=== PATIENT | male | born 1990 | race American Indian/Alaskan Native ===

== ENCOUNTER 2022-05-21 15:20 | Emergency (ER) | payer SELFPAY ==
--- NOTE | 2022-05-21 19:08 | XRay Report ---
CHEST 1 VIEW 05/21/2022 5:49 PM INDICATION / CLINICAL INFORMATION: cough. COMPARISON: None available. FINDINGS: SUPPORT DEVICES: None. HEART / MEDIASTINUM: No significant abnormality. LUNGS / PLEURA: No significant pulmonary or pleural abnormality. No pneumothorax. ADDITIONAL FINDINGS: No significant additional findings. IMPRESSION: 1. No acute findings. Signer Name: Guille Pham MD Signed: 05/21/2022 7:04 PM Workstation Name: [id number]
--- NOTE | 2022-05-21 20:50 | Emergency Department Report ---
ED General Adult HPI - General Chief complaint: Medical Clearance Stated complaint: AGITATION/NON VERBLE Time Seen by Provider: 05/21/22 17:05 Source: EMS Mode of arrival: Stretcher Limitations: Other - History of Present Illness Initial comments: The patient presents to the emergency department via EMS from what we believed to be a care home for agitation. Patient reportedly has autism and per the care home the patient becomes more agitated when he is ill. Patient is no acute distress upon initial evaluation. Due to his autism he does not part icipate in attainment of history. -: unknown Severity scale (0 -10): 0 Improves with: none Worsens with: none Treatments Prior to Arrival: none - Related Data Allergies Allergy/AdvReac Type Severity Reaction Status Date / Time No Known Allergies Allergy Verified 05/21/22 15:35 ED Review of Systems ROS: Stated complaint: AGITATION/NON VERBLE Other details as noted in HPI Comment: Unobtainable due to pts medical conditions (Not able to obtain due to the patient's autism) ED Past Medical Hx - Past Medical History Hx Hypertension: Yes Hx Psychiatric Treatment: Yes (Autistic) Additional medical history: EPILEPSY, INSOMNIA, GERD, ADHD, OBESITY - Surgical History Past Surgical History?: No - Social History Smoking Status: Never Smoker Substance Use Type: None ED Physical Exam - General Limitations: Other (Mental capacity) General appearance: alert, in no apparent distress - Head Head exam: Present: atraumatic, normocephalic - Eye Eye exam: Present: normal appearance, PERRL, EOMI - Respiratory Respiratory exam: Present: normal lung sounds bilaterally. Absent: respiratory distress - Cardiovascular Cardiovascular Exam: Present: regular rate, normal rhythm - GI/Abdominal GI/Abdominal exam: Present: soft, other (Patient has an enlarged abdomen s econdary to body habitus. Soft nontender on exam). Absent: tenderness - Extremities Exam Extremities exam: Present: normal inspection - Neurological Exam Neurological exam: Present: alert, other (Not able to complete a thorough neuro exam due to the patient's autism) - Psychiatric Psychiatric exam: Present: other (Not able to complete psychiatric exam due to the patient's baseline condition) - Skin Skin exam: Present: warm, dry, intact, normal color. Absent: rash ED Course Vital Signs 05/21/22 05/21/22 05/21/22 15:33 16:51 16:53 Temperature 97.6 F Pulse Rate 84 83 Respiratory 14 20 20 Rate Blood Pressure 129/85 Blood Pressure 141/90 [Left] O2 Sat by Pulse 98 96 97 Oximetry 05/21/22 05/21/22 16:57 18:11 Temperature 97.6 F 97.8 F Pulse Rate 80 72 Respiratory 20 20 Rate Blood Pressure Blood Pressure 129/85 132/78 [Left] O2 Sat by Pulse 96 96 Oximetry ED Medical Decision Making - Medical Decision Making Patient refused blood work and x-ray. Critical care attestation.: If time is entered above; I have spent that time in minutes in the direct care of this critically ill patient, excluding procedure time. ED Disposition Clinical Impression: Agitation Disposition: 01 HOME / SELF CARE / HOMELESS Is pt being admited?: No Does the pt Need Aspirin: No Condition: Stable Additional Instructions: Return if worse Referrals: BO AVENDANO MD [Primary Care Provider] - 3-5 Days OTTO AGUILAR MD [Staff Physician] - 3-5 Days Time of Disposition: 20:51
[2022-05-22] MEDS ORDERED: ZOLPIDEM 5 MG TAB PO ONE (01:23)
[2022-05-22 07:43] VITALS: BP 159/98
== END 2022-05-22 11:42 | disposition home or self-care (01) ==
LOC: EDSEX → ED 15:20 → EEVIPCON 15:20 → ED 05-22 11:42
DX: R45.1 Restlessness and agitation (principal); I10 Essential (primary) hypertension; K21.9 Gastro-esophageal reflux disease without esophagitis; Z79.899 Other long term (current) drug therapy
CPT/HCPCS: 71045; 99284